=== PATIENT | male | born 1945 | race Caucasian/White ===

== ENCOUNTER → 2017-12-04 | Outpatient (CLI) | payer MEDICARE ==
[~2017-12-04] MED LIST: ANDROGEL1.25 GM TD; ATIVAN1 MG PO; DESONIDE CR. 1515 GM TOP; FLOMAX0.4 MG PO; FLONASE 0.05%50 MCG NASAL; IMDUR 60 MG TAB60 M1 PO; KETOCONAZOLE60 GM TP; KLOR-CON 1010 MEQ PO; LASIX 40 MG TAB40 M2 PO; LISINOPRIL20 MG PO; LIVALO2 MG PO; NITROSTAT0.4 M1 SL; NORVASC5 MG PO; OXYCONTIN10 M1 PO; PERCOCET 5-3251 EACH PO; PERCOCET 7.5-31 EACH PO; PLAVIX 75 MG TA75 M1 PO; PREDNISONE 10 M10 MG PO; PROAIR HFA8.5 GM INH; PROSCAR 5MG TABL5 MG PO; TRAZODONE HCL50 MG PO; VOLTAREN GEL 1100 G2 TOP; XARELTO10 MG PO
[2017-12-04 13:46] LABS: CHOLESTEROL 185 mg/dL (<200); HDL CHOLESTEROL 48 mg/dL (>40); LDL CHOLESTEROL 122 mg/dL (<100); TC:HDL 3.9 Ratio (Not establshd); TRIGLYCERIDE 75 mg/dL (<150); VLDL 15 mg/dL (<40)
[2017-12-04 13:47] LABS: SERUM ASSESSMENT CLEAR
== END ==
LOC: M.LAB 13:19
PROVIDERS: Nurse Practitioner
DX: E78.5 Hyperlipidemia, unspecified (principal); I71.4 Abdominal aortic aneurysm, without rupture

== ENCOUNTER → 2018-03-24 | Outpatient (CLI) | payer MEDICARE ==
[2018-03-24 11:55] LABS: CHOLESTEROL 158 mg/dL (<200); HDL CHOLESTEROL 53 mg/dL (>40); LDL CHOLESTEROL 94 mg/dL (<100); TRIGLYCERIDE 55 mg/dL (<150); VLDL 11 mg/dL (<40)
[2018-03-24 11:57] LABS: SERUM ASSESSMENT Clear
== END ==
LOC: M.CT 11:11
PROVIDERS: Urology
DX: I71.4 Abdominal aortic aneurysm, without rupture (principal); I25.10 Atherosclerotic heart disease of native coronary artery without angina pectoris; E78.5 Hyperlipidemia, unspecified; D30.01 Benign neoplasm of right kidney; E11.9 Type 2 diabetes mellitus without complications; E78.00 Pure hypercholesterolemia, unspecified; I10 Essential (primary) hypertension; J45.909 Unspecified asthma, uncomplicated; Z90.89 Acquired absence of other organs

== ENCOUNTER → 2019-03-31 | Outpatient (CLI) | payer MEDICARE | LOC: M.CT 11:40 | DX: D30.01 Benign neoplasm of right kidney (principal); I71.4 Abdominal aortic aneurysm, without rupture; M47.815 Spondylosis without myelopathy or radiculopathy, thoracolumbar region; N20.0 Calculus of kidney; I77.1 Stricture of artery ==

== ENCOUNTER → 2019-04-11 | Outpatient (CLI) | payer MEDICARE ==
[2019-04-11 12:40] LABS: CREATININE 1.3 mg/dL (0.6-1.3)
== END ==
LOC: M.LAB 12:15 → M.CT 13:30
PROVIDERS: Surgery
DX: I71.4 Abdominal aortic aneurysm, without rupture (principal); N20.0 Calculus of kidney; K57.30 Diverticulosis of large intestine without perforation or abscess without bleeding; N28.9 Disorder of kidney and ureter, unspecified